=== PATIENT | male | born 1980 ===

== ENCOUNTER 2025-03-13 12:25 | Emergency (ER) | payer OTHER ==
[~2025-03-13] VITALS: Ht 157.5 cm; Wt 63.0 kg
[2025-03-13] MEDS ORDERED: Ondansetron HCl 2 MG / ML 2ML Vial IV PRN (12:50)
[2025-03-13 13:49] LABS: Hematocrit 25.2 % (37.0-53.0); Hemoglobin 8.8 g/dL (13.5-17.5); Mean Corpuscular HGB Conc 34.9 g/dL (31.5-36.5); Mean Corpuscular Volume 89 fL (80-100); NRBC ABSOLUTE 5.78 K/mm3 (0.00-0.02); NRBC Auto 1.4 /100 WBC (0.0-0.2); RDW Coefficient Variation 20.3 % (11.7-14.2); RDW Standard Deviation 64.2 fL (35.1-46.3)
[2025-03-13 13:52] LABS: Alanine Aminotransfer (ALT/SGP 22.0 U/L (12-78); Albumin, Blood 3.7 g/dL (3.4-5.0); Albumin/Globulin Ratio 0.8 (0.8-1.8); Anion Gap 7.0 mmol/L (3-11); Aspartate Aminotrans (AST/SGOT 31.0 U/L (12-37); Bilirubin, Total 0.7 mg/dL (0.1-1.0); Blood Urea Nitrogen 12.0 mg/dL (8-24); CO2, Blood 27.0 mmol/L (21-32); Calcium, Blood 8.3 mg/dL (8.5-10.1); Chloride, Blood 105.0 mmol/L (98-108); Creatinine, Blood 0.81 mg/dL (0.60-1.20); Globulin, Blood 4.4 g/dL (2.2-4.0); Glucose, Blood 89.0 mg/dL (70-99); Potassium, Blood 4.0 mmol/L (3.5-5.5); Sodium, Blood 135.0 mmol/L (136-145); Total Protein, Blood 8.1 g/dL (6.4-8.2)
[2025-03-13 13:53] LABS: Platelet Count 197 K/mm3 (150-400)
[2025-03-13 14:35] LABS: BAND PERCENT MAN 17 % (0-8); BASOPHILS ABSOLUTE MAN 29.24 K/mm3 (0.00-0.23); BASOPHILS PERCENT MAN 7 % (0-2); BLASTS PERCENT MAN 3 % (0-0); EOSINOPHILS ABSOLUTE MAN 54.30 K/mm3 (0.00-0.68); EOSINOPHILS PERCENT MAN 13 % (0-6); METAMYELOCYTE ABSOLUTE MAN 41.77 K/mm3 (0.00-0.00); METAMYELOCYTE PERCENT MAN 10 % (0-0); MONOCYTES ABSOLUTE MAN 0.00 K/mm3 (0.16-1.47); MONOCYTES PERCENT MAN 0 % (4-13); MYELOCYTE ABSOLUTE MAN 79.36 K/mm3 (0.00-0.00); MYELOCYTE PERCENT MAN 19 % (0-0); NEUTROPHILS ABSOLUTE MAN 196.32 K/mm3 (1.96-9.15); PROMYELOCYTE ABSOLUTE MAN 4.17 K/mm3 (0.00-0.00); PROMYELOCYTE PERCENT MAN 1 % (0-0); SEG NEUTROPHILS PERCENT MAN 30 % (41-73)
[2025-03-13] MEDS ORDERED: Ketorolac Tromethamine 15mg Vial IV ONE (15:55)
[2025-03-13] MEDS ORDERED: NS 1,000 ML IV SCH (17:00)
[2025-03-13] MEDS ORDERED: ONDA4ODT MM (17:35)
[2025-03-13] MEDS ORDERED: HYDURE500 PO (17:35)
[2025-03-13] MEDS ORDERED: HYDR1TAB94 PO (17:35)
== END 2025-03-13 18:45 | disposition home or self-care (01) ==
LOC: ER 12:25
PROVIDERS: Student in an Organized Health Care Education/Training Program
DX: C95.90 Leukemia, unspecified not having achieved remission (principal); D63.8 Anemia in other chronic diseases classified elsewhere; R16.1 Splenomegaly, not elsewhere classified; E11.9 Type 2 diabetes mellitus without complications
CPT/HCPCS: 74177; 80053; 83605; 83690; 84550; 85025; 96374-59; 96375; 99284-25; A9270; J1885; J2405; J7030; Q9967